=== PATIENT | male | born 1955 | race American Indian/Alaskan Native ===

== ENCOUNTER 2017-05-01 04:35 | Emergency (ER) | payer BC ==
--- NOTE | 2017-05-01 06:40 | Emergency Department Report ---
ED General Adult HPI - General Chief complaint: Back Pain/Injury Stated complaint: BACK PAIN Time Seen by Provider: 05/01/17 06:11 Source: patient Mode of arrival: Stretcher Limitations: No Limitations - History of Present Illness Initial comments: Patient is a 61-year-old male past medical history of prostate cancer and congestive heart failure who presents with lower back pain. Patient states that he's been having back pain for last 4 days. It's worse tonight. A call out worse after he was lifting boxes at work. He says that 10 out of 10 moving and lifting makes it worse rest makes it better. Patient states is an sore type of pain. Patient denies having any fever or any bowel or bladder incontinence no saddle paresthesia. Severity scale (0 -10): 8 - Related Data Home Medications Medication Instructions Recorded Confirmed Last Taken Aspirin [Aspirin BABY CHEW TAB] 81 mg PO QDAY 11/14/15 11/14/15 11/13/15 Carvedilol 3.125 mg PO BID 11/14/15 11/14/15 11/13/15 Isosorbide Dinitrate 30 mg PO QDAY 11/14/15 11/14/15 11/13/15 Varenicline Tartrate [Chantix] 1 tab PO QDAY 11/14/15 11/14/15 11/13/15 Previous Rx's Medication Instructions Recorded Last Taken Type Acetaminophen [Acetaminophen TAB] 1,000 mg PO Q6HR #30 tablet 05/01/17 Unknown Rx Cyclobenzaprine [Flexeril] 10 mg PO TID PRN #20 tablet 05/01/17 Unknown Rx Naproxen [Naprosyn] 375 mg PO BID #20 tablet 05/01/17 Unknown Rx Allergies Allergy/AdvReac Type Severity Reaction Status Date / Time peanut Allergy Swelling Verified 05/01/17 04:49 shellfish derived Allergy Swelling Verified 11/14/15 07:05 ED Review of Systems ROS: Stated complaint: BACK PAIN Other details as noted in HPI Constitutional: denies: chills, fever Eyes: denies: eye pain, eye discharge, vision change ENT: denies: ear pain, throat pain Respiratory: denies: cough, shortness of breath, wheezing Cardiovascular: denies: chest pain, palpitations Endocrine: no symptoms reported Gastrointestinal: denies: abdominal pain, nausea, diarrhea Genitourinary: denies: urgency, dysuria Musculoskeletal: back pain. denies: joint swelling, arthralgia Skin: denies: rash, lesions Neurological: denies: headache, weakness, paresthesias Psychiatric: denies: anxiety, depression Hematological/Lymphatic: denies: easy bleeding, easy bruising ED Past Medical Hx - Past Medical History Previous Medical History?: Yes Hx Congestive Heart Failure: Yes Hx of Cancer: Yes (prostate (in remission)) Hx Arthritis: Yes (R knee) - Surgical History Past Surgical History?: Yes Additional Surgical History: cataracts - Social History Smoking Status: Current Some Day Smoker Substance Use Type: None - Medications Home Medications: Home Medications Medication Instructions Recorded Confirmed Last Taken Type Aspirin [Aspirin BABY CHEW TAB] 81 mg PO QDAY 11/14/15 11/14/15 11/13/15 History Carvedilol 3.125 mg PO BID 11/14/15 11/14/15 11/13/15 History Isosorbide Dinitrate 30 mg PO QDAY 11/14/15 11/14/15 11/13/15 History Varenicline Tartrate [Chantix] 1 tab PO QDAY 11/14/15 11/14/15 11/13/15 History Acetaminophen [Acetaminophen TAB] 1,000 mg PO Q6HR #30 tablet 05/01/17 Unknown Rx Cyclobenzaprine [Flexeril] 10 mg PO TID PRN #20 tablet 05/01/17 Unknown Rx Naproxen [Naprosyn] 375 mg PO BID #20 tablet 05/01/17 Unknown Rx ED Physical Exam - General Limitations: No Limitations General appearance: alert, in no apparent distress - Head Head exam: Present: atraumatic, normocephalic - Eye Eye exam: Present: normal appearance - ENT ENT exam: Present: mucous membranes moist - Neck Neck exam: Present: normal inspection - Respiratory Respiratory exam: Present: normal lung sounds bilaterally. Absent: respiratory distress - Cardiovascular Cardiovascular Exam: Present: regular rate, normal rhythm. Absent: systolic murmur, diastolic murmur, rubs, gallop - GI/Abdominal GI/Abdominal exam: Present: soft, normal bowel sounds - Rectal Rectal exam: Present: deferred - Extremities Exam Extremities exam: Present: normal inspection - Back Exam Back exam: Present: tenderness, muscle spasm, paraspinal tenderness - Neurological Exam Neurological exam: Present: alert, oriented X3 - Psychiatric Psychiatric exam: Present: normal affect, normal mood - Skin Skin exam: Present: warm, dry, intact, normal color. Absent: rash ED Course Vital Signs 05/01/17 05/01/17 04:49 06:00 Temperature 98.3 F 98.6 F Pulse Rate 64 56 L Respiratory 18 16 Rate Blood Pressure 178/119 Blood Pressure 142/86 [Left] O2 Sat by Pulse 100 99 Oximetry - Reevaluation(s) Reevaluation #1: 05/01/17 10:16 Patient's better after pain medication we'll send patient home. ED Medical Decision Making - Radiology Data Lumbar x-ray: Shows no acute osseous injury. - Medical Decision Making Medical diagnosis: Lumbar sacral strain Differential medical diagnosis: Slipped disc, bone metastases I will get x-ray and I will give patient IM Toradol, oral Percocet and muscle relaxer. X-rays unremarkable some patient home with oral pain medication. Patient agrees with plan. Critical care attestation.: If time is entered above; I have spent that time in minutes in the direct care of this critically ill patient, excluding procedure time. ED Disposition Clinical Impression: Lower back pain Qualifiers: Chronicity: acute Back pain laterality: midline Sciatica presence: without sciatica Qualified Code(s): M54.5 - Low back pain Disposition: - TO HOME OR SELFCARE Is pt being admited?: No Does the pt Need Aspirin: No Condition: Stable Instructions: Low Back Strain (ED), Core Strengthening Exercises (GEN) Prescriptions: Acetaminophen [Acetaminophen TAB] 1,000 mg PO Q6HR #30 tablet Cyclobenzaprine [Flexeril] 10 mg PO TID PRN #20 tablet PRN Reason: Muscle Spasm Naproxen [Naprosyn] 375 mg PO BID #20 tablet Referrals: MELANI VELOZ MD [Staff Physician] - 3-5 Days Forms: Work/School Release Form(ED)
[2017-05-01] MEDS ORDERED: NORCO 10/325 PO ONE (06:41)
--- NOTE | 2017-05-01 07:29 | XRay Report ---
LUMBOSACRAL SPINE, 3 VIEWS: History: Back pain, prostate cancer Findings: The vertebral bodies, disk spaces and posterior elements are intact. No compression deformity or malalignment. Mild degenerative disc disease and facet arthropathy are identified at all levels. The SI joints are symmetric and unremarkable. No obvious sclerotic bony lesions associated with osteophyte cancer on x-ray. Impression: Mild lumbar spondylosis.
[2017-05-01] MEDS ORDERED: TORADOL IM ONE (09:58)
[2017-05-01] MEDS ORDERED: PERCOCET 5/325 PO ONE (09:59)
[2017-05-01] MEDS ORDERED: FLEXERIL PO ONE (10:10)
[2017-05-01] MEDS ORDERED: VALIUM IV ONE (11:23)
[2017-05-01 13:43] VITALS: BP 115/85
== END 2017-05-01 13:43 | disposition home or self-care (01) ==
LOC: ED 04:35
DX: M54.5 Low back pain (principal); I50.9 Heart failure, unspecified; F17.200 Nicotine dependence, unspecified, uncomplicated
CPT/HCPCS: 72100; 96372; 96374; 99284; J1885; J3360